=== PATIENT | female | born 1965 | race Hispanic/Latino ===

== ENCOUNTER 2019-01-15 11:23 | Inpatient (IN) | payer SELFPAY ==
[~2019-01-15] VITALS: Ht 157.5 cm; Wt 59.9 kg
[2019-01-15 12:49] LABS: BASOPHILS % (AUTO) 2.3 % (0.0-5.0); EOSINOPHILS % (AUTO) 19.8 % (0.0-8.0); LYMPHOCYTES % (AUTO) 15.3 % (21.0-51.0); MEAN CORPUSCULAR HEMOGLOBIN 30.1 pg (27.0-33.0); MEAN CORPUSCULAR HGB CONC 34.3 g/dL (32.0-36.0); MEAN CORPUSCULAR VOLUME 87.8 fL (79-99); MONOCYTES % (AUTO) 4.2 % (3.0-13.0); NEUTROPHILS % (AUTO) 58.4 % (40.0-77.0); PLATELET COUNT (AUTO) 193 K/uL (130-400); RED BLOOD CELL COUNT(AUTO) 3.99 MIL/uL (4.00-5.50); RED CELL DISTRIBUTION WIDTH 13.2 % (11.0-15.5); WHITE BLOOD COUNT (AUTO) 4.7 K/uL (4.8-10.8)
[2019-01-15 13:11] LABS: CREATININE 1.2 mg/dL (0.5-1.5); POTASSIUM 3.8 mmol/L (3.5-5.1)
[2019-01-15 13:13] LABS: INR 0.96 (0.85-1.15); PARTIAL THROMBOPLASTIN TIME 26.4 SEC (26.3-35.5); PROTHROMBIN TIME 10.1 SEC (9.6-11.6)
[2019-01-15 13:16] LABS: BILIRUBIN,DIRECT 0.1 mg/dL (0.0-0.3); BILIRUBIN,TOTAL 0.4 mg/dL (0.2-1.0); TOTAL PROTEIN, SERUM 5.9 g/dL (6.0-8.3)
[2019-01-15 13:20] LABS: B-TYPE NATRIURETIC PEPTIDE 221 pg/mL (0-100)
[2019-01-15 13:28] LABS: BILIRUBIN,URINE Negative (NEGATIVE); COLOR,URINE Yellow (YELLOW); GLUCOSE, URINE (UA) >=1000 mg/dL (NEGATIVE); KETONES,URINE Negative (NEGATIVE); LEUKOCYTE ESTERASE ,URINE Trace (NEGATIVE); NITRATE,URINE Negative (NEGATIVE); OCCULT BLOOD,URINE Large (NEGATIVE); PROTEIN,URINE >=1000 (NEGATIVE)
[2019-01-15 13:48] LABS: APPEARANCE,URINE CLOUDY (CLEAR)
[2019-01-15 13:49] LABS: BACTERIA,URINE Many /HPF (None Seen); SQUAMOUS EPITHELIAL CELL,UR Few /HPF (0-2); WBC,URINE 26-50 /HPF (0-1)
[2019-01-15] MEDS ORDERED: FUROSEMIDE 10 MG/ML 4ML VIAL ONE (15:01)
[2019-01-15] MEDS ORDERED: METHYLPREDNISOLONE SOD SUCC 125MG/2ML VIAL ONE (15:01)
[2019-01-15] MEDS ORDERED: ALBUMIN (HUMAN) 25% 100 ML IV ONE (15:01)
[2019-01-15] MEDS ORDERED: CEFTRIAXONE SODIUM 1 GM ONE (15:01)
[2019-01-15 19:25] VITALS: BP 158/93
--- NOTE | 2019-01-15 19:25 | NUR ---
ADMISSION. PT ADMITTED TO ROOM 404, TRANSFERRED VIA WHEELCHAIR. PT AWAKE ALERT AND RESPONSIVE, NO C/O PAIN OR DISCOMFORT AT THIS TIME. PT ORIENTED TO ROOM, CALL TORRE WITHIN REACH, BED IN LOWEST POSITION. Addendum: 01/15/19 at 2007 by ELLIOTT BARNETT RN Amended: Links added.
[2019-01-15] MEDS ORDERED: LISI40TA4 PO (19:44)
[2019-01-15] MEDS ORDERED: SITA100T12 PO (19:44)
[2019-01-15] MEDS ORDERED: INSLAN SQ (19:44)
[2019-01-15] MEDS ORDERED: GABA-529 PO (19:44)
[2019-01-15] MEDS ORDERED: METF-446 PO (19:44)
[2019-01-15] MEDS: FAMOTIDINE/PF 20 MG/2 ML VIAL IV SCH (20:45)
[2019-01-15] MEDS: ENOXAPARIN SODIUM 40 MG/0.4 ML SYRINGE SQ SCH (20:46)
[2019-01-15] MEDS: INSULIN R PO SS1 SQ SCH (20:50)
[2019-01-15] MEDS ORDERED: SODIUM CHLORIDE 0.9% 500ML 500 ML in SODIUM CHLORIDE 0.9% 500ML 500 ML IV SCH (21:00)
[2019-01-15] MEDS: GABAPENTIN 100 MG CAPSULE PO SCH (21:03)
[2019-01-15] MEDS: INSULIN GLARGINE 100 UNITS/ML 10 ML VIAL SQ SCH (21:04)
[2019-01-15] MEDS ORDERED: SODIUM CHLORIDE 0.9% 500ML 500 ML IV SCH (21:15)
[2019-01-16] VITALS (7 sets, daily range): BP systolic 116–148; BP diastolic 65–88
[2019-01-16 04:51] LABS: HEMATOCRIT 32.3 % (36-48); MEAN CORPUSCULAR HEMOGLOBIN 30.4 pg (27.0-33.0); MEAN CORPUSCULAR HGB CONC 34.7 g/dL (32.0-36.0); MEAN CORPUSCULAR VOLUME 87.5 fL (79-99); PLATELET COUNT (AUTO) 207 K/uL (130-400); RED BLOOD CELL COUNT(AUTO) 3.69 MIL/uL (4.00-5.50); RED CELL DISTRIBUTION WIDTH 12.9 % (11.0-15.5); WHITE BLOOD COUNT (AUTO) 3.9 K/uL (4.8-10.8)
[2019-01-16 05:06] LABS: ALBUMIN 2.1 g/dL (3.5-5.0); BILIRUBIN,TOTAL 0.2 mg/dL (0.2-1.0); CREATININE 1.5 mg/dL (0.5-1.5); CRP QUANTITATIVE 12.3 mg/L (0.00-9.0); MAGNESIUM 1.7 mg/dL (1.80-2.40); POTASSIUM 4.2 mmol/L (3.5-5.1); TOTAL PROTEIN, SERUM 5.7 g/dL (6.0-8.3)
[2019-01-16 05:58] LABS: ERYTHROCYTE SEDIMENTATION RATE 61 MM/HR (0-30)
[2019-01-16] MEDS: INSULIN R PO SS1 SQ SCH ×4 (06:23→21:45)
[2019-01-16] MEDS ORDERED: LISINOPRIL 40 MG TABLET PO SCH (09:00)
[2019-01-16] MEDS: GABAPENTIN 100 MG CAPSULE PO SCH ×3 (09:15→21:47)
[2019-01-16] MEDS: FAMOTIDINE/PF 20 MG/2 ML VIAL IV SCH ×2 (09:15→21:47)
[2019-01-16] MEDS: ENOXAPARIN SODIUM 40 MG/0.4 ML SYRINGE SQ SCH ×2 (09:16→21:48)
[2019-01-16] MEDS ORDERED: MAGNESIUM 2GM PREMIX 50ML 50 ML IV PRN (11:00)
[2019-01-16] MEDS ORDERED: HYDRALAZINE HCL 20 MG/ML VIAL IV PRN (11:00)
[2019-01-16 14:27] LABS: PROTEIN,URINE RANDOM 883.2 mg/dL (0-11.9)
[2019-01-16] MEDS ORDERED: CEFTRIAXONE SODIUM 1 GM IVP SCH (15:00)
--- NOTE | 2019-01-16 18:04 | NUR ---
INITIAL: Met with pt this afternoon to discuss dcp. Pt states that she lives alone. She is independent w ambulation and ADLs. She does not own any DME or receive services. Per pt she goes to [facility] for her medical needs and obtains medications from their pharmacy. Pt states that she feels safe and comfortable [place]. Will continue to follow and wait for Md recommendations. Addendum: 01/16/19 at 1806 by KEILA CORREIA CM Amended: Links added.
[2019-01-16] MEDS: INSULIN GLARGINE 100 UNITS/ML 10 ML VIAL SQ SCH (21:47)
[2019-01-17 04:00] VITALS: BP 159/90
[2019-01-17] MEDS: INSULIN R PO SS1 SQ SCH (05:50)
[2019-01-17 06:07] LABS: BASOPHILS % (AUTO) 0.7 % (0.0-5.0); EOSINOPHILS % (AUTO) 14.7 % (0.0-8.0); HEMATOCRIT 30.7 % (36-48); LYMPHOCYTES % (AUTO) 35.3 % (21.0-51.0); MEAN CORPUSCULAR HEMOGLOBIN 30.2 pg (27.0-33.0); MEAN CORPUSCULAR HGB CONC 34.3 g/dL (32.0-36.0); MEAN CORPUSCULAR VOLUME 88.1 fL (79-99); MONOCYTES % (AUTO) 4.6 % (3.0-13.0); NEUTROPHILS % (AUTO) 44.7 % (40.0-77.0); NUCLEATED RED BLOOD CELLS 0.1 % (0.0-0.19); PLATELET COUNT (AUTO) 221 K/uL (130-400); RED BLOOD CELL COUNT(AUTO) 3.48 MIL/uL (4.00-5.50); RED CELL DISTRIBUTION WIDTH 13.4 % (11.0-15.5); WHITE BLOOD COUNT (AUTO) 5.6 K/uL (4.8-10.8)
[2019-01-17 06:15] LABS: CREATININE 1.3 mg/dL (0.5-1.5); MAGNESIUM 2.3 mg/dL (1.80-2.40); POTASSIUM 3.5 mmol/L (3.5-5.1)
[2019-01-17 07:57] VITALS: BP 134/72
[2019-01-17] MEDS: GABAPENTIN 100 MG CAPSULE PO SCH (09:05)
[2019-01-17] MEDS: ENOXAPARIN SODIUM 40 MG/0.4 ML SYRINGE SQ SCH (09:06)
[2019-01-17] MEDS ORDERED: FUROSEMIDE 20 MG TABLET PO SCH (09:15)
[2019-01-17] MEDS: FAMOTIDINE/PF 20 MG/2 ML VIAL IV SCH (11:05)
[2019-01-17] MEDS ORDERED: CEFTRIAXONE SODIUM 1 GM IM SCH (11:30)
[2019-01-18] MEDS ORDERED: FUROSEMIDE 20 MG TABLET PO SCH (09:00)
== END 2019-01-17 12:35 | disposition home or self-care (01) | DRG 682 ==
LOC: EDH 11:23 → EDHIP 11:24 → 4AH 18:36
PROVIDERS: ADMIT Family Medicine; ATTEND Family Medicine
DX: N17.9 Acute kidney failure, unspecified (principal); E43 Unspecified severe protein-calorie malnutrition; J98.11 Atelectasis; N39.0 Urinary tract infection, site not specified; E87.70 Fluid overload, unspecified; E83.42 Hypomagnesemia; D64.9 Anemia, unspecified; E11.21 Type 2 diabetes mellitus with diabetic nephropathy; I10 Essential (primary) hypertension; E78.5 Hyperlipidemia, unspecified; F41.9 Anxiety disorder, unspecified; Z68.24 Body mass index [BMI] 24.0-24.9, adult
CPT/HCPCS: 36415; 70450; 71045; 76770; 80048; 80053; 80076; 81001; 82550; 82570; 82947; 82948; 83735; 83880; 84156; 84484; 85025; 85027; 85610; 85651; 85730; 86140; 86160; 86255; 86334; 93005; A4218; G0378; J0696; J1650; J1815; J1940; J2930; J3475; J3490; J7040; P9046

== ENCOUNTER → 2022-08-13 | Outpatient (CLI) | payer MEDICAID ==
[~2022-08-13] MED LIST: GABA-529 PO; INSLAN SQ; LISI40TA9 PO; METF-446 PO; SITA100T12 PO
== END | disposition home or self-care (01) ==
LOC: OIH 11:06
PROVIDERS: ATTEND Internal Medicine
DX: I35.1 Nonrheumatic aortic (valve) insufficiency (principal); I11.9 Hypertensive heart disease without heart failure; I73.9 Peripheral vascular disease, unspecified; E78.5 Hyperlipidemia, unspecified
CPT/HCPCS: 93306

== ENCOUNTER 2022-08-26 09:39 | Emergency (ER) | payer MEDICAID ==
[~2022-08-26] VITALS: Ht 157.5 cm; Wt 56.2 kg
[2022-08-26 10:08] LABS: BASOPHILS % (AUTO) 0.5 % (0.0-5.0); EOSINOPHILS % (AUTO) 1.7 % (0.0-8.0); HEMATOCRIT 39.6 % (36-48); LYMPHOCYTES % (AUTO) 10.9 % (21.0-51.0); MEAN CORPUSCULAR HEMOGLOBIN 28.3 pg (27.0-33.0); MEAN CORPUSCULAR HGB CONC 33.3 g/dL (32.0-36.0); MEAN CORPUSCULAR VOLUME 84.8 fL (79-99); MONOCYTES % (AUTO) 4.4 % (3.0-13.0); PLATELET COUNT (AUTO) 123 K/uL (130-400); RED BLOOD CELL COUNT(AUTO) 4.67 MIL/uL (4.00-5.50); RED CELL DISTRIBUTION WIDTH 13.5 % (11.0-15.5); WHITE BLOOD COUNT (AUTO) 4.1 K/uL (4.8-10.8)
[2022-08-26 10:57] LABS: APPEARANCE,URINE CLEAR (CLEAR); BILIRUBIN,URINE NEGATIVE (NEGATIVE); COLOR,URINE COLORLESS (YELLOW); GLUCOSE, URINE (UA) >=1000 mg/dL (NEGATIVE); KETONES,URINE NEGATIVE (NEGATIVE); LEUKOCYTE ESTERASE ,URINE NEGATIVE Leu/uL (NEGATIVE); NITRATE,URINE NEGATIVE (NEGATIVE); OCCULT BLOOD,URINE SMALL (NEGATIVE); PROTEIN,URINE 100 mg/dL (NEGATIVE); UROBILINOGEN,URINE 0.2 mg/dL (0.2-1.0)
[2022-08-26] MEDS ORDERED: INSULIN HUMULIN R 100 UNIT/ML 3ML IV STA ×3 (11:38→14:58)
[2022-08-26 11:41] LABS: POTASSIUM 3.7 mmol/L (3.5-5.1)
[2022-08-26] MEDS ORDERED: 0.9%NACL 1000ML 1,000 ML IV ONE ×2 (12:00→16:30)
[2022-08-26 12:08] LABS: ALBUMIN 2.6 g/dL (3.5-5.0); TOTAL PROTEIN, SERUM 6.3 g/dL (6.0-8.3)
[2022-08-26 12:09] LABS: CREATININE 5.4 mg/dL (0.5-1.5)
[2022-08-26] MEDS ORDERED: CLONIDINE HCL 0.2 MG TABLET PO ONE (13:11)
[2022-08-26] MEDS ORDERED: KETOROLAC 15MG/ML VIAL (15MG/ML) ONE (13:56)
[2022-08-26] MEDS ORDERED: CYCLOBENZAPRINE HCL 10 MG TABLET ONE (14:42)
[2022-08-26 14:45] LABS: CREATININE 5.5 mg/dL (0.5-1.5); POTASSIUM 3.1 mmol/L (3.5-5.1)
[2022-08-26] MEDS ORDERED: POTASSIUM BICARB/CIT AC 25 MEQ TABLET.EFF PO STA (14:58)
[2022-08-26 17:46] LABS: CREATININE 5.4 mg/dL (0.5-1.5); POTASSIUM 3.2 mmol/L (3.5-5.1)
[2022-08-26] MEDS ORDERED: POTA-187 PO (18:13)
[2022-08-26 18:39] VITALS: BP 101/63
== END 2022-08-26 18:26 | disposition home or self-care (01) ==
LOC: EDH 09:39
DX: E11.65 Type 2 diabetes mellitus with hyperglycemia (principal); E11.00 Type 2 diabetes mellitus with hyperosmolarity without nonketotic hyperglycemic-hyperosmolar coma (NKHHC); I10 Essential (primary) hypertension; Z98.890 Other specified postprocedural states; Z79.899 Other long term (current) drug therapy; Z79.84 Long term (current) use of oral hypoglycemic drugs
CPT/HCPCS: 99285; 96374; 96361; 96375; 82270; 83735; 84484; 80053; 85025; 82948 ×3; 81001; 36415; 96376; 93005; 80048 ×2; J1815 ×3; J7030 ×2; J1885

== ENCOUNTER → 2022-12-22 | Outpatient (CLI) | payer MEDICAID ==
[~2022-12-22] MED LIST changes: +POTA-187 PO
[2022-12-22 12:55] LABS: CHOLESTEROL 156 mg/dL (<200); HDL CHOLESTEROL 50 mg/dL (35-85); LDL DIRECT 77 mg/dL (0-99); TRIGLYCERIDES 173 mg/dL (30-200)
== END | disposition home or self-care (01) ==
LOC: LAB 11:35
PROVIDERS: ATTEND Student in an Organized Health Care Education/Training Program
DX: E78.5 Hyperlipidemia, unspecified (principal)
CPT/HCPCS: 36415; 80061

== ENCOUNTER 2023-02-01 12:50 | Inpatient (IN) | payer MEDICAID ==
[~2023-02-01] VITALS: Ht 157.5 cm; Wt 60.1 kg
[2023-02-01 13:59] LABS: BASOPHILS % (AUTO) 0.3 % (0.0-5.0); EOSINOPHILS % (AUTO) 0.3 % (0.0-8.0); HEMATOCRIT 35.3 % (36-48); LYMPHOCYTES % (AUTO) 13.4 % (21.0-51.0); MEAN CORPUSCULAR HEMOGLOBIN 29.2 pg (27.0-33.0); MEAN CORPUSCULAR HGB CONC 33.7 g/dL (32.0-36.0); MEAN CORPUSCULAR VOLUME 86.7 fL (79-99); MONOCYTES % (AUTO) 4.6 % (3.0-13.0); NEUTROPHILS % (AUTO) 80.7 % (40.0-77.0); PLATELET COUNT (AUTO) 208 K/uL (130-400); RED BLOOD CELL COUNT(AUTO) 4.07 MIL/uL (4.00-5.50); RED CELL DISTRIBUTION WIDTH 14.8 % (11.0-15.5)
[2023-02-01 15:08] LABS: ALBUMIN 2.1 g/dL (3.5-5.0); CREATININE 6.1 mg/dL (0.5-1.5); POTASSIUM 3.1 mmol/L (3.5-5.1); TOTAL PROTEIN, SERUM 5.7 g/dL (6.0-8.3)
[2023-02-01] MEDS ORDERED: MECLIZINE HCL 25 MG TABLET ONE (15:51)
[2023-02-01] MEDS: HYDRALAZINE 25MG TABLET PO SCH (15:52)
[2023-02-01] MEDS ORDERED: HYDRALAZINE 25MG TABLET ONE (15:52)
[2023-02-01] MEDS ORDERED: INSULIN REGULAR, HUMAN 3ML 100 UNIT in 0.9%NACL 100ML 100 ML IV SCH ×4 (16:00→21:00)
[2023-02-01] MEDS ORDERED: MECLIZINE HCL 12.5 MG TABLET PO ONE (16:00)
[2023-02-01 16:46] LABS: THYROID STIMULATING HORMONE 0.5 uIU/mL (0.36-3.74)
[2023-02-01] MEDS: NICARDIPINE IV SCH ×2 (16:47→22:05)
[2023-02-01] MEDS: NACL 0.9% IV SCH ×2 (16:47→22:05)
[2023-02-01] MEDS ORDERED: LIDOCAINE HCL-MPF 1% 2ML VIAL IV PRN ×4 (17:00→21:00)
[2023-02-01] MEDS ORDERED: POTASSIUM CHLORIDE 20MEQ/100ML 100 ML IV ONE ×2 (17:07→19:41)
[2023-02-01] MEDS: POTASSIUM CHLORIDE 20MEQ/100ML 100 ML IV PRN ×2 (17:12→19:42)
[2023-02-01] MEDS ORDERED: LIDOCAINE HCL-MPF 2% 5ML VIAL ONE (18:13)
[2023-02-01] MEDS ORDERED: CEFTRIAXONE 1G VIAL IVP SCH (18:30)
[2023-02-01 18:59] LABS: ABG BASE EXCESS 0.8 mmol/L (-2.0-3.0); ABG HCO3 25.2 mmol/L (21.0-28.0); ABG PCO2 39 mmHg (32-45)
[2023-02-01] MEDS ORDERED: CEFTRIAXONE 1G VIAL ONE (19:12)
[2023-02-01 19:21] LABS: CREATININE 6.3 mg/dL (0.5-1.5)
[2023-02-01 20:35] LABS: APPEARANCE,URINE CLOUDY (CLEAR); BILIRUBIN,URINE NEGATIVE (NEGATIVE); COLOR,URINE LIGHT-YELLOW (YELLOW); GLUCOSE, URINE (UA) >=1000 mg/dL (NEGATIVE); KETONES,URINE NEGATIVE (NEGATIVE); LEUKOCYTE ESTERASE ,URINE 250 Leu/uL (NEGATIVE); NITRATE,URINE NEGATIVE (NEGATIVE); OCCULT BLOOD,URINE MODERATE (NEGATIVE); PROTEIN,URINE 300 mg/dL (NEGATIVE); UROBILINOGEN,URINE 0.2 mg/dL (0.2-1.0)
[2023-02-01 20:38] LABS: AMPHET/METH SCREEN,URINE NEGATIVE (NEGATIVE); BACTERIA,URINE MOD /HPF (None Seen); BARBITURATE SCREEN, URINE NEGATIVE (NEGATIVE); BENZODIAZEPINES SCREEN,URINE NEGATIVE (NEGATIVE); CANNABINOID SCREEN,URINE NEGATIVE (NEGATIVE); COCAINE SCREEN,URINE NEGATIVE (NEGATIVE); MUCUS,URINE RARE LPF (None Seen); OPIATE SCREEN,URINE NEGATIVE (NEGATIVE); OTHER CASTS, URINE 1 /LPF (None Seen); PHENCYCLIDINE SCREEN,URINE NEGATIVE (NEGATIVE); SQUAMOUS EPITHELIAL CELL,UR FEW /HPF (0-2); WBC,URINE 51-100 /HPF (0-1)
[2023-02-01 21:00] LABS: CREATININE 6.4 mg/dL (0.5-1.5); POTASSIUM 3.1 mmol/L (3.5-5.1)
[2023-02-01] MEDS ORDERED: 0.9%NACL 1000ML 1,002 ML IV ONE (21:00)
[2023-02-01] MEDS ORDERED: ACETAMINOPHEN 650 MG SUPPOSITORY RC PRN (21:00)
[2023-02-01] MEDS ORDERED: POTASSIUM CHLORIDE 20MEQ/100ML 100 ML IV PRN ×2 (21:00)
[2023-02-01] MEDS ORDERED: MAGNESIUM 2GM PREMIX 50ML 50 ML IV SCH (21:00)
[2023-02-01] MEDS ORDERED: POTASSIUM CHLORIDE 10MEQ/100ML 100 ML IV PRN (21:00)
[2023-02-01] MEDS ORDERED: MANNITOL 20% IV SCH (21:00)
[2023-02-01] MEDS ORDERED: ACETAMINOPHEN 325 MG TAB PO PRN (21:00)
[2023-02-01] MEDS ORDERED: MAGNESIUM 2GM PREMIX 50ML 50 ML IV PRN (21:00)
[2023-02-01] MEDS: CEFTRIAXONE 2GM VIAL IVP SCH (21:00)
[2023-02-01] MEDS ORDERED: D5W-1/2 NS/20MEQ KCL 1,000 ML IV SCH (21:00)
[2023-02-01] MEDS ORDERED: ONDANSETRON 4MG INJ IVP PRN (21:00)
[2023-02-01] MEDS ORDERED: 0.9%NACL 1000ML 1,000 ML IV SCH ×2 (21:00)
[2023-02-01] MEDS ORDERED: POTASSIUM CHLORIDE 10% ELIXIR 20 MEQ/15 ML UDCUP PO PRN (21:00)
[2023-02-01] MEDS ORDERED: 0.9%NACL 1000ML 3,000 ML IV ONE (21:04)
[2023-02-01] MEDS ORDERED: NICARDIPINE 25MG INJ IV ONE (21:26)
[2023-02-01] MEDS ORDERED: PHARMACY COMMUNICATION MISC SCH (21:30)
[2023-02-01] MEDS ORDERED: RENAL DOSE IV PRN (21:30)
[2023-02-01] MEDS ORDERED: AZITHROMYCIN 500MG+NS 250ML 250 ML ONE (21:40)
[2023-02-01] MEDS: INSULIN GLARGINE 100 UNITS/ML 10 ML VIAL SQ SCH (21:41)
[2023-02-01] MEDS: AZITHROMYCIN 500MG+NS 250ML IVPB SCH (21:43)
[2023-02-01 23:45] LABS: CREATININE 6.2 mg/dL (0.5-1.5)
[2023-02-01 23:54] LABS: INR 1.05 (0.85-1.15); PROTHROMBIN TIME 11.4 SEC (9.6-11.6)
[2023-02-01 23:55] LABS: PARTIAL THROMBOPLASTIN TIME 22.5 SEC (26.3-35.5); POTASSIUM 2.8 mmol/L (3.5-5.1)
[2023-02-02] MEDS ORDERED: LISI20TA24 PO (00:07)
[2023-02-02] MEDS ORDERED: LATA2.5D14 OU (00:07)
[2023-02-02] MEDS ORDERED: ASPI-1197 PO (00:07)
[2023-02-02] MEDS ORDERED: FOLI1TAB85 PO (00:07)
[2023-02-02] MEDS ORDERED: CARV25TA PO (00:07)
[2023-02-02] MEDS ORDERED: ATOR40TA71 PO (00:07)
[2023-02-02] MEDS ORDERED: POTASSIUM CHLORIDE 20MEQ/100ML 100 ML IV ONE (00:47)
[2023-02-02 06:54] LABS: BASOPHILS % (AUTO) 0.4 % (0.0-5.0); EOSINOPHILS % (AUTO) 7.3 % (0.0-8.0); HEMATOCRIT 32.8 % (36-48); LYMPHOCYTES % (AUTO) 22.4 % (21.0-51.0); MEAN CORPUSCULAR HEMOGLOBIN 29.7 pg (27.0-33.0); MEAN CORPUSCULAR HGB CONC 33.8 g/dL (32.0-36.0); MEAN CORPUSCULAR VOLUME 87.7 fL (79-99); MONOCYTES % (AUTO) 5.5 % (3.0-13.0); PLATELET COUNT (AUTO) 178 K/uL (130-400); RED BLOOD CELL COUNT(AUTO) 3.74 MIL/uL (4.00-5.50); RED CELL DISTRIBUTION WIDTH 15.2 % (11.0-15.5); WHITE BLOOD COUNT (AUTO) 6.9 K/uL (4.8-10.8)
[2023-02-02 07:21] LABS: ALBUMIN 1.8 g/dL (3.5-5.0); CREATININE 5.6 mg/dL (0.5-1.5); MAGNESIUM 1.6 mg/dL (1.80-2.40); POTASSIUM 3.3 mmol/L (3.5-5.1)
[2023-02-02] MEDS ORDERED: PANTOPRAZOLE 40 MG/VIAL ONE (07:48)
[2023-02-02] MEDS ORDERED: VITAMIN B COMPLEX 1 CAPSULE ONE (07:48)
[2023-02-02] MEDS ORDERED: ENOXAPARIN SODIUM 30 MG/0.3 ML SQ ONE (07:48)
[2023-02-02] MEDS ORDERED: ASPIRIN 81MG CHEW TAB ONE (07:49)
[2023-02-02] MEDS ORDERED: CARVEDILOL 25 MG TABLET PO ONE (07:49)
[2023-02-02] MEDS ORDERED: INSULIN HUMULIN R 100 UNIT/ML 3ML ONE ×2 (07:52→10:55)
[2023-02-02] MEDS: INSULIN GLARGINE 100 UNITS/ML 10 ML VIAL SQ SCH ×2 (07:53→21:50)
[2023-02-02] MEDS: INSULIN HUMULIN R 100 UNIT/ML 3ML SQ SCH ×4 (07:55→21:51)
[2023-02-02] MEDS: LISINOPRIL 5 MG TABLET ONE ×2 (07:55→08:30)
[2023-02-02] MEDS ORDERED: MAGNESIUM 2GM PREMIX 50ML 50 ML IV ONE (08:20)
[2023-02-02] MEDS ORDERED: KCL 20 MEQ ERTAB PO ONE ×2 (08:20→10:54)
[2023-02-02] MEDS: PANTOPRAZOLE 40 MG/VIAL IVP SCH (08:24)
[2023-02-02] MEDS: VITAMIN B COMPLEX 1 CAPSULE PO SCH (08:25)
[2023-02-02] MEDS: ENOXAPARIN SODIUM 30 MG/0.3 ML SQ SCH (08:26)
[2023-02-02] MEDS: ASPIRIN 81MG CHEW TAB PO SCH (08:27)
[2023-02-02] MEDS: KCL 20 MEQ ERTAB PO PRN ×2 (08:27→10:56)
[2023-02-02] MEDS: CARVEDILOL 25 MG TABLET PO SCH ×2 (08:28→21:48)
[2023-02-02] MEDS: LISINOPRIL 20 MG TABLET PO SCH (08:30)
[2023-02-02] MEDS ORDERED: GUAIFENESIN-DM 200/20 MG 10 ML PO PRN (09:30)
[2023-02-02] MEDS ORDERED: IPRATROPIUM/ALBUTEROL SULFATE 3 ML SOLUTION IH PRN (09:30)
[2023-02-02 11:05] VITALS: BP 136/68
[2023-02-02 14:52] LABS: CREATININE 6.2 mg/dL (0.5-1.5); POTASSIUM 3.4 mmol/L (3.5-5.1)
[2023-02-02] MEDS: HYDRALAZINE 25MG TABLET PO SCH (15:46)
[2023-02-02 16:00] VITALS: BP 94/54
[2023-02-02 19:48] VITALS: BP 115/68
[2023-02-02] MEDS ORDERED: LATANOPROST 2.5 ML DROPS OU SCH (21:00)
[2023-02-02] MEDS ORDERED: ATORVASTATIN 40 MG TABLET PO SCH (21:00)
[2023-02-02] MEDS: CEFTRIAXONE 2GM VIAL IVP SCH (21:48)
[2023-02-02] MEDS: AZITHROMYCIN 500MG+NS 250ML IVPB SCH (21:49)
[2023-02-02 23:29] VITALS: BP 99/59
[2023-02-03 04:35] VITALS: BP 81/48
[2023-02-03 04:57] LABS: BASOPHILS % (AUTO) 0.5 % (0.0-5.0); EOSINOPHILS % (AUTO) 9.6 % (0.0-8.0); HEMATOCRIT 30.9 % (36-48); LYMPHOCYTES % (AUTO) 30.4 % (21.0-51.0); MEAN CORPUSCULAR HEMOGLOBIN 29.6 pg (27.0-33.0); MEAN CORPUSCULAR VOLUME 92.2 fL (79-99); MONOCYTES % (AUTO) 5.1 % (3.0-13.0); NEUTROPHILS % (AUTO) 53.9 % (40.0-77.0); PLATELET COUNT (AUTO) 183 K/uL (130-400); RED BLOOD CELL COUNT(AUTO) 3.35 MIL/uL (4.00-5.50); RED CELL DISTRIBUTION WIDTH 15.9 % (11.0-15.5); WHITE BLOOD COUNT (AUTO) 6.7 K/uL (4.8-10.8)
[2023-02-03 04:58] LABS: CREATININE 6.4 mg/dL (0.5-1.5); MAGNESIUM 2.3 mg/dL (1.80-2.40); POTASSIUM 3.1 mmol/L (3.5-5.1)
[2023-02-03] MEDS: KCL 20 MEQ ERTAB PO PRN (07:00)
[2023-02-03 08:00] VITALS: BP 139/73
[2023-02-03] MEDS: INSULIN HUMULIN R 100 UNIT/ML 3ML SQ SCH ×4 (08:01→11:30)
[2023-02-03] MEDS: INSULIN GLARGINE 100 UNITS/ML 10 ML VIAL SQ SCH (08:02)
[2023-02-03] MEDS: ENOXAPARIN SODIUM 30 MG/0.3 ML SQ SCH (09:22)
[2023-02-03] MEDS: VITAMIN B COMPLEX 1 CAPSULE PO SCH (09:22)
[2023-02-03] MEDS: PANTOPRAZOLE 40 MG/VIAL IVP SCH (09:22)
[2023-02-03] MEDS: LISINOPRIL 20 MG TABLET PO SCH (09:23)
[2023-02-03] MEDS: ASPIRIN 81MG CHEW TAB PO SCH (09:23)
[2023-02-03] MEDS: CARVEDILOL 25 MG TABLET PO SCH (09:24)
[2023-02-03 11:55] VITALS: BP 137/70
[2023-02-03] MEDS ORDERED: AMOX-426 PO (12:56)
== END 2023-02-03 12:45 | disposition home or self-care (01) | DRG 420 ==
LOC: EDH 12:50 → EDHIP 12:51 → UNDOADMIN 15:55 → 4DH 02-02 11:05
PROVIDERS: ADMIT Internal Medicine; ATTEND Internal Medicine
DX: E11.00 Type 2 diabetes mellitus with hyperosmolarity without nonketotic hyperglycemic-hyperosmolar coma (NKHHC) (principal); I12.0 Hypertensive chronic kidney disease with stage 5 chronic kidney disease or end stage renal disease; E11.22 Type 2 diabetes mellitus with diabetic chronic kidney disease; E46 Unspecified protein-calorie malnutrition; E88.09 Other disorders of plasma-protein metabolism, not elsewhere classified; E11.65 Type 2 diabetes mellitus with hyperglycemia; E87.1 Hypo-osmolality and hyponatremia; D64.9 Anemia, unspecified; Z20.822 Contact with and (suspected) exposure to COVID-19; N39.0 Urinary tract infection, site not specified; N18.6 End stage renal disease; E78.5 Hyperlipidemia, unspecified; I16.1 Hypertensive emergency; E87.8 Other disorders of electrolyte and fluid balance, not elsewhere classified; E87.6 Hypokalemia; Z91.199 Patient's noncompliance with other medical treatment and regimen due to unspecified reason; Z99.2 Dependence on renal dialysis; Z79.4 Long term (current) use of insulin; Z86.73 Personal history of transient ischemic attack (TIA), and cerebral infarction without residual deficits; Z68.24 Body mass index [BMI] 24.0-24.9, adult
CPT/HCPCS: 36415; 36600; 70450; 71045; 80048; 80053; 80305; 81001; 82010; 82150; 82533; 82803; 82948; 83036; 83605; 83690; 83735; 84439; 84443; 84481; 84484; 84702; 84703; 85025; 85610; 85730; 87040; 87077; 87088; 87186; 87635; 87804; 93005; 94664; C9113; G0378; J0456; J0696; J1650; J1815; J3475; J3480; J3490; J7030; J7050

== ENCOUNTER 2023-02-15 14:27 | Emergency (ER) | payer MEDICAID ==
[~2023-02-15 14:27] MED LIST changes: +ASPI-1197 PO; +ATOR40TA71 PO; +CARV25TA PO; +FOLI1TAB85 PO; -GABA-529 PO; -INSLAN SQ; +LATA2.5D14 OU; +LISI20TA24 PO; -LISI40TA9 PO; -METF-446 PO; -POTA-187 PO; -SITA100T12 PO
[2023-02-19] MEDS ORDERED: INSLAN SQ (19:36)
[2023-02-20] MEDS ORDERED: RIVA15TA PO (17:40)
[2023-02-20] MEDS ORDERED: RIVA20TA PO (17:40)
== END 2023-02-15 16:09 | disposition left against medical advice (07) ==
LOC: EDH 14:27
DX: M79.89 Other specified soft tissue disorders (principal); Z53.21 Procedure and treatment not carried out due to patient leaving prior to being seen by health care provider

== ENCOUNTER → 2023-06-25 | Outpatient (CLI) | payer OTHER ==
[~2023-06-25] MED LIST changes: +AMOX-426 PO; +INSLAN SQ; +RIVA15TA PO; +RIVA20TA PO
[2023-06-25 12:54] LABS: CHOLESTEROL 157 mg/dL (<200); HDL CHOLESTEROL 76 mg/dL (35-85); LDL DIRECT 65 mg/dL (0-99); TRIGLYCERIDES 64 mg/dL (30-200)
== END | disposition home or self-care (01) ==
LOC: LAB 09:16
PROVIDERS: ATTEND Student in an Organized Health Care Education/Training Program
DX: E78.5 Hyperlipidemia, unspecified (principal)
CPT/HCPCS: 36415; 80061

== ENCOUNTER → 2024-01-20 | Outpatient (CLI) | payer OTHER, MEDICARE ==
[~2024-01-20] MED LIST changes: -AMOX-426 PO; +CALC0.253 PO; +CEFD300C3 PO; +FERS325 PO; -INSLAN SQ; +INSU3INS3 SQ; +LISI10TA24 PO; -LISI20TA24 PO; +NIFE-78 PO; -RIVA15TA PO; -RIVA20TA PO
[2024-01-20 12:38] LABS: CHOLESTEROL 147 mg/dL (<200); HDL CHOLESTEROL 66 mg/dL (35-85); LDL DIRECT 71 mg/dL (0-99); TRIGLYCERIDES 109 mg/dL (30-200)
== END | disposition home or self-care (01) ==
LOC: LAB 08:25
PROVIDERS: ATTEND Student in an Organized Health Care Education/Training Program
DX: E78.5 Hyperlipidemia, unspecified (principal)
CPT/HCPCS: 36415; 80061